=== PATIENT | male | born 1940 | race Caucasian/White ===

== ENCOUNTER 2017-10-04 21:24 | Emergency (ER) | payer MEDICARE, OTHER ==
[~2017-10-04] VITALS: Ht 177.8 cm; Wt 95.9 kg
[~2017-10-04 21:24] MED LIST: CIPR-278 PO; CLOP75 PO; DULO60CA44 PO; LISI-660 PO; METO25XL PO; SIMV-261 PO; TAMS0.4C32 PO
[2017-10-04] MEDS ORDERED: ESCI10TA PO (22:22)
[2017-10-04] MEDS ORDERED: FURO20 PO (22:22)
[2017-10-04] MEDS ORDERED: FINA5TAB41 PO (22:22)
[2017-10-04] MEDS ORDERED: SIMV-261 PO (22:22)
[2017-10-04] MEDS ORDERED: DSS100 PO (22:22)
[2017-10-04] MEDS ORDERED: PANT20TA PO (22:22)
[2017-10-04] MEDS ORDERED: METO50 PO (22:22)
[2017-10-04 23:40] LABS: APPEARANCE,URINE CLOUDY (CLEAR); BILIRUBIN,URINE NEGATIVE (NEGATIVE); GLUCOSE, URINE (UA) NEGATIVE (NEGATIVE); KETONES,URINE NEGATIVE (NEGATIVE); LEUKOCYTE ESTERASE ,URINE LARGE (NEGATIVE); NITRATE,URINE NEGATIVE (NEGATIVE); OCCULT BLOOD,URINE SMALL (NEGATIVE); PROTEIN,URINE TRACE (NEGATIVE)
[2017-10-04 23:57] LABS: BACTERIA,URINE Rare /HPF (None Seen); SQUAMOUS EPITHELIAL CELL,UR Few /LPF (None Seen); WBC,URINE 26-50 /HPF (0-5); YEAST,URINE Rare /HPF (None Seen)
[2017-10-05 00:04] VITALS: BP 118/97
== END 2017-10-05 02:01 | disposition home or self-care (01) ==
LOC: EMS 21:26
DX: T83.9XXA Unspecified complication of genitourinary prosthetic device, implant and graft, initial encounter (principal); N39.0 Urinary tract infection, site not specified; J44.9 Chronic obstructive pulmonary disease, unspecified; I10 Essential (primary) hypertension
CPT/HCPCS: 51702; 87086; 99284

== ENCOUNTER 2017-10-10 18:18 | Emergency (ER) | payer MEDICARE, OTHER ==
[~2017-10-10] VITALS: Ht 177.8 cm; Wt 99.1 kg
[~2017-10-10 18:18] MED LIST changes: -CIPR-278 PO; -CLOP75 PO; +DSS100 PO; -DULO60CA44 PO; +ESCI10TA PO; +FINA5TAB41 PO; +FURO20 PO; -METO25XL PO; +METO50 PO; +PANT20TA PO; -TAMS0.4C32 PO
[2017-10-10] MEDS ORDERED: LISI-661 PO (19:00)
[2017-10-10] MEDS ORDERED: TAMS0.4C32 PO (19:00)
[2017-10-10] MEDS ORDERED: ASCO500T24 PO (19:00)
[2017-10-10] MEDS ORDERED: MIRALAX PO (19:00)
[2017-10-10] MEDS ORDERED: HYDR-309 PO (19:00)
[2017-10-10] MEDS ORDERED: MEGE400O4 PO (19:00)
[2017-10-10] MEDS ORDERED: CEPH500 PO (19:00)
[2017-10-10] MEDS ORDERED: ONDA4 PO (19:00)
[2017-10-10] MEDS ORDERED: CLOP75 PO (20:42)
[2017-10-10] MEDS ORDERED: PHEN-933 PO (20:42)
[2017-10-10] MEDS ORDERED: FURO20 PO (20:42)
[2017-10-10] MEDS ORDERED: DSS100 PO (20:42)
[2017-10-10] MEDS ORDERED: FINA5TAB41 PO (20:42)
[2017-10-10] MEDS ORDERED: ESCI10TA PO (20:42)
[2017-10-10 20:58] VITALS: BP 132/68
== END 2017-10-10 22:53 | disposition home or self-care (01) ==
LOC: EMS 18:19
DX: S09.90XA Unspecified injury of head, initial encounter (principal); E04.1 Nontoxic single thyroid nodule; I10 Essential (primary) hypertension; J44.9 Chronic obstructive pulmonary disease, unspecified; W18.39XA Other fall on same level, initial encounter; Y93.89 Activity, other specified; Y92.89 Other specified places as the place of occurrence of the external cause; Y99.8 Other external cause status
CPT/HCPCS: 70450; 72125; 99284